=== PATIENT | male | born 1955 | race Caucasian/White ===

== ENCOUNTER 2017-05-13 14:52 | Outpatient (CLI) | payer OTHER ==
[2017-05-13 16:48] LABS: Hemoglobin 14.9 g/dL (14.0-18.0); Mean Corpuscular HGB CONC 33.5 g/dL (32.0-36.0); Mean Corpuscular Hemoglobin 33.5 pg (27.0-31.0); Mean Corpuscular Volume 99.9 fl (80.0-94.0); Mean Platelet Volume 8.6 fL (7.4-10.4); Platelet Count 161 thou/uL (130-400); Red Blood Cell (RBC) Count 4.45 mill/uL (4.70-6.10)
[2017-05-13 17:09] LABS: Anion Gap 10 mmol/L (10-20); BUN (Urea Nitrogen) 14 mg/dL (8.4-25.7); Calc. Creatinine Clearance 0 mL/min (70-130); Calcium 9.6 mg/dL (7.8-10.44); Carbon Dioxide 25 mmol/L (23-31); Chloride 99 mmol/L (98-107); Estimated GFR-MDRD 59; Glucose 89 mg/dL (80-115); Potassium 4.3 mmol/L (3.5-5.1); Sodium 130 mmol/L (136-145)
--- NOTE | 2017-05-29 22:33 | EKG ---
Test Reason : Blood Pressure : / mmHG Vent. Rate : 069 BPM Atrial Rate : 069 BPM P-R Int : 114 ms QRS Dur : 092 ms QT Int : 384 ms P-R-T Axes : 033 073 060 degrees QTc Int : 411 ms Normal sinus rhythm with sinus arrhythmia Possible Anterior infarct (cited on or before 25-APR-2006) Abnormal ECG When compared with ECG of 25-APR-2006 06:45, Sinus rhythm has replaced Junctional rhythm Questionable change in QRS duration Borderline criteria for Inferior infarct are no longer Present Questionable change in initial forces of Lateral leads Confirmed by Dewayne CAMP ([id number]) on 05/29/2017 10:33:13 PM Referred By: ASTON Confirmed By:Dewayne CAMP
== END 2017-05-13 14:53 | disposition home or self-care (01) ==
LOC: LABBT 14:52
PROVIDERS: ATTEND Thoracic Surgery (Cardiothoracic Vascular Surgery)
DX: Z01.818 Encounter for other preprocedural examination (principal); I65.29 Occlusion and stenosis of unspecified carotid artery
CPT/HCPCS: 80048; 85027; 93005; 93010

== ENCOUNTER 2017-05-13 15:00 | Inpatient (IN) | payer OTHER ==
[2017-05-13 15:22] VITALS: BMI 11.2
[2017-05-14] MEDS ORDERED: Nitroglycerin 50 MG/250 ML BOT 250 ML ONE (06:12)
[2017-05-14] MEDS ORDERED: Phenylephrine HCL 10 MG/ML VIAL ONE (06:12)
[2017-05-14] MEDS ORDERED: Nitroglycerin 2% Ointment 1 INCH/1 GM Packet ONE (06:12)
[2017-05-14] MEDS ORDERED: CEFAZOLIN/Water 2 GM/20 ML SYRINGE ONE (06:13)
[2017-05-14] MEDS ORDERED: Heparin 5,000 UNITS/ML VIAL ONE (06:24)
[2017-05-14] MEDS ORDERED: Protamine Sulfate 50 MG/5 ML VIAL ONE (06:24)
[2017-05-14] MEDS ORDERED: Fentanyl 250 MCG/5 ML VIAL ONE (06:43)
[2017-05-14] MEDS ORDERED: Levofloxacin 500 mg/D5W 100 ml Premix Bag ONE (06:44)
[2017-05-14] MEDS ORDERED: Clindamycin/D5W 900 mg/50 ml Premix Bag ONE (06:44)
[2017-05-14] MEDS ORDERED: Midazolam HCl 2 mg/2 ml Vial ONE (06:45)
[2017-05-14] MEDS ORDERED: Famotidine/PF 20 mg/2ml Vial ONE (06:53)
[2017-05-14] MEDS ORDERED: HYDROmorphone 2 MG/ML VIAL SLOW IVP PRN (08:01)
[2017-05-14] MEDS ORDERED: Morphine Sulfate 2 MG/ML SYRINGE SLOW IVP PRN (08:01)
[2017-05-14] MEDS ORDERED: Promethazine HCl 25 MG/ML VIAL IM PRN ×2 (08:01→11:12)
[2017-05-14] MEDS ORDERED: Ondansetron HCl/PF 4 MG/2 ML Vial IVP PRN ×2 (08:01→11:12)
[2017-05-14] MEDS ORDERED: Promethazine HCl 25 MG/ML VIAL SLOW IVP PRN (08:01)
[2017-05-14] MEDS ORDERED: Meperidine HCl/PF 25 MG/ML VIAL SLOW IVP PRN (08:01)
[2017-05-14] MEDS ORDERED: Fentanyl 100 MCG/2 ML VIAL ONE (09:49)
[2017-05-14] MEDS ORDERED: Fentanyl 100 MCG/2 ML VIAL SLOW IVP PRN ×2 (11:12)
[2017-05-14] MEDS ORDERED: HYDROcodone/Acetaminophen 5/325 mg Tablet PO PRN ×2 (11:12)
[2017-05-14] MEDS ORDERED: hydrALAZINE 20 MG/ML VIAL SLOW IVP PRN (11:12)
[2017-05-14] MEDS ORDERED: Nitroglycerin 50 MG/250 ML BOT 250 ML IVPB PRN (11:12)
[2017-05-14] MEDS ORDERED: Phenylephrine 10 MG/NS 250 ML 250 ML IVPB PRN (11:12)
[2017-05-14] MEDS ORDERED: Fluticasone Propionate Nasal Spray 16 gm Bottle NASAL SCH (12:00)
[2017-05-14] MEDS ORDERED: PROVENTIL INHALER 6.7 G (200 INHALATIONS) INH PRN (12:15)
[2017-05-14] MEDS ORDERED: Aspirin 81 mg Enteric Coated Tablet PO SCH (12:15)
[2017-05-14] MEDS ORDERED: Lisinopril 20 MG TAB PO SCH (12:15)
[2017-05-14] MEDS ORDERED: Amlodipine 5 MG TAB PO SCH (12:15)
[2017-05-14] MEDS ORDERED: Carvedilol 6.25 MG TAB PO SCH ×2 (12:15→21:00)
[2017-05-14] MEDS: Clindamycin/D5W 900 MG in Premix Bag 1 BAG IVPB SCH ×3 (12:16→23:46)
[2017-05-14] MEDS: Acetaminophen 325 MG TAB PO PRN ×2 (13:58→19:54)
[2017-05-14] MEDS ORDERED: Propofol 200 MG/20 ML VIAL ONE (14:44)
[2017-05-14] MEDS ORDERED: PHENYLEPHRINE-NS 100 MCG/ML 10 ML SYRINGE ONE (14:44)
[2017-05-14] MEDS ORDERED: Heparin 10,000 UNITS/ 10 ML VIAL ONE (14:44)
[2017-05-14] MEDS ORDERED: Labetalol 100 MG/20 ML MDV ONE (14:44)
[2017-05-14] MEDS ORDERED: ePHEDrine/0.9% NaCl/PF SYRINGE 50 mg/10 ml ONE (14:44)
[2017-05-14] MEDS ORDERED: Ondansetron HCl/PF 4 MG/2 ML Vial ONE (14:44)
[2017-05-14] MEDS ORDERED: Nitroglycerin 50 MG/250 ML BOT ONE (14:44)
[2017-05-14] MEDS ORDERED: Lidocaine 1% PF 5 ML VIAL ONE (14:44)
[2017-05-14] MEDS ORDERED: Glycopyrrolate 0.2 MG/ML 5 ML SYRINGE ONE (14:44)
[2017-05-14 19:58] VITALS: BP 112/58
[2017-05-14] MEDS ORDERED: Simvastatin 40 MG TAB PO SCH (21:00)
[2017-05-15] MEDS: Sodium Chloride 0.9% 1,000 ML IV SCH ×2 (01:41→08:25)
--- NOTE | 2017-05-15 05:59 | DIS ---
DATE OF ADMISSION: 05/14/2017 DATE OF DISCHARGE: 05/15/2017 DIAGNOSES: Asymptomatic left carotid stenosis. PROCEDURES: Left carotid endarterectomy with patch angioplasty. DESCRIPTION OF HOSPITAL STAY: Mr. Madrigal was admitted for an elective carotid endarterectomy. He qureshi s done well. He is being discharged home postoperatively in good condition to follow up with me in 2 weeks.
[2017-05-15] MEDS: Clindamycin/D5W 900 MG in Premix Bag 1 BAG IVPB SCH (06:16)
[2017-05-15 07:16] VITALS: TEMP 98.2
[2017-05-15] MEDS ORDERED: Doxycycline Monohydrate 25 MG/5 ML PO SCH (09:00)
[2017-05-15] MEDS ORDERED: Lisinopril 20 MG TAB PO SCH (09:00)
[2017-05-15] MEDS ORDERED: Amlodipine 5 MG TAB PO SCH (09:00)
[2017-05-15] MEDS ORDERED: Fluticasone Propionate Nasal Spray 16 gm Bottle NASAL SCH (09:00)
[2017-05-15] MEDS ORDERED: Aspirin 81 mg Enteric Coated Tablet PO SCH (09:00)
[2017-05-15] MEDS: Acetaminophen 325 MG TAB PO PRN (09:05)
== END 2017-05-15 09:17 | disposition home or self-care (01) | DRG 39 ==
LOC: SURG A 05-14 05:35 → CCU 05-14 11:01
PROVIDERS: ADMIT Thoracic Surgery (Cardiothoracic Vascular Surgery); ATTEND Thoracic Surgery (Cardiothoracic Vascular Surgery)
PROC: 03CJ0ZZ Extirpation of Matter from Left Common Carotid Artery, Open Approach (ICD-10-PCS; principal; 2017-05-14)
PROC: 03UJ0JZ Supplement Left Common Carotid Artery with Synthetic Substitute, Open Approach (ICD-10-PCS; 2017-05-14)
DX: I65.8 Occlusion and stenosis of other precerebral arteries (principal); F17.210 Nicotine dependence, cigarettes, uncomplicated; I65.22 Occlusion and stenosis of left carotid artery; Z79.82 Long term (current) use of aspirin; Z88.1 Allergy status to other antibiotic agents
CPT/HCPCS: 80048; 85027; 93005; 93010; 94640; J0131; J1642; J1644; J1956; J2001; J2250; J2370; J2405; J2704; J2720; J3010; J3490; J7620; S0028

== ENCOUNTER 2020-05-10 10:05 | Outpatient (CLI) | payer MEDICARE, OTHER | END 2020-05-10 10:06 | disposition home or self-care (01) | LOC: BICMRI 10:05 | PROVIDERS: ATTEND Nurse Practitioner Family | DX: M47.22 Other spondylosis with radiculopathy, cervical region (principal) | CPT/HCPCS: 72141 ==

== ENCOUNTER 2020-09-23 10:44 | Outpatient (CLI) | payer MEDICARE, OTHER ==
[2020-09-23 12:06] LABS: Anion Gap 14 mmol/L (10-20); BUN (Urea Nitrogen) 26 mg/dL (8.4-25.7); Calc. Creatinine Clearance 0 mL/min (70-130); Calcium 9.6 mg/dL (7.8-10.44); Carbon Dioxide 23 mmol/L (23-31); Chloride 104 mmol/L (98-107); Glucose 90 mg/dL (80-115); Potassium 5.1 mmol/L (3.5-5.1); Sodium 136 mmol/L (136-145)
[2020-09-23 12:22] LABS: Hemoglobin 14.1 g/dL (13.5-17.5); Mean Corpuscular HGB CONC 33.5 g/dL (32.0-36.0); Mean Corpuscular Volume 95.5 fl (81.2-95.1); Mean Platelet Volume 11.9 fl (7.4-10.4); Platelet Count 144 10x3/uL (150-450); RBC Distribution Width 12.6 % (11.5-14.5); Red Blood Cell (RBC) Count 4.41 10x6/uL (4.32-5.72); White Blood Cell (WBC) Count 7.1 10x3/uL (3.5-10.5)
[2020-09-23 18:31] LABS: SARS-CoV-2 PCR by NAA Not Detected (NotDetected)
== END 2020-09-23 10:45 | disposition home or self-care (01) ==
LOC: LABBT 10:44
PROVIDERS: ATTEND Neurological Surgery
DX: Z01.818 Encounter for other preprocedural examination (principal); M54.12 Radiculopathy, cervical region; Z20.822 Contact with and (suspected) exposure to COVID-19
CPT/HCPCS: 80048; 85027; 93005; U0003; U0005; 93010

== ENCOUNTER 2020-09-28 07:02 | Day surgery (SDC) | payer MEDICARE, OTHER ==
[2020-09-27 10:56] VITALS: BMI 26.1
== END 2020-09-28 08:15 | disposition home or self-care (01) ==
LOC: SDC 07:02
PROVIDERS: ATTEND Neurological Surgery
DX: M54.12 Radiculopathy, cervical region (principal); M25.78 Osteophyte, vertebrae; M48.02 Spinal stenosis, cervical region; J45.909 Unspecified asthma, uncomplicated; I10 Essential (primary) hypertension; Z53.9 Procedure and treatment not carried out, unspecified reason; Z79.02 Long term (current) use of antithrombotics/antiplatelets; Z79.82 Long term (current) use of aspirin; Z79.899 Other long term (current) drug therapy; Z88.0 Allergy status to penicillin; Z88.8 Allergy status to other drugs, medicaments and biological substances; Z91.018 Allergy to other foods

== ENCOUNTER 2021-09-10 16:23 | Inpatient (IN) | payer MEDICARE, OTHER ==
[~2021-09-10 16:23] MED LIST: Iopamidol-370 76% 500 ML 1 ML ONE
[2021-09-10] MEDS ORDERED: HUMAN PROTHROMBIN COMPLX IV SCH (17:00)
[2021-09-10] MEDS ORDERED: ADMIXTURE FEE IV SCH (17:00)
[2021-09-10 17:33] LABS: SARS-CoV-2 NAA Rapid Test Not Detected (NotDetected)
[2021-09-10 17:46] LABS: #Eosinphils 0.1 thou/uL (0.0-0.7); #Lymphocytes 2.8 thou/uL (1.20-3.40); #Monocytes 1.8 thou/uL (0.11-0.59); #Neutrophils 11.8 thou/uL (1.40-6.50); %Basophils 0.2 % (0.0-1.0); %Eosinophils 0.7 % (0.0-10.0); %Lymphocytes 16.8 % (21.0-51.0); %Monocytes 10.8 % (0.0-10.0); %Neutrophils 71.5 % (42.0-75.0); Hemoglobin 13.1 g/dL (14.0-18.0); Mean Corpuscular HGB CONC 33.1 g/dL (32.0-36.0); Mean Corpuscular Hemoglobin 32.3 pg (27.0-31.0); Mean Corpuscular Volume 97.8 fL (78.0-98.0); Mean Platelet Volume 8.7 fL (7.4-10.4); Platelet Count 241 thou/uL (130-400); RBC Distribution Width 12.6 % (11.5-14.5); Red Blood Cell (RBC) Count 4.06 mill/uL (4.70-6.10); White Blood Cell (WBC) Count 16.4 thou/uL (4.8-10.8)
[2021-09-10 17:54] LABS: INR-International Normal Ratio 1.1; Prothrombin Time 14.1 sec (12.0-14.7)
[2021-09-10 17:56] LABS: PTT 27.8 sec (22.9-36.1)
[2021-09-10 18:20] LABS: ALT (SGPT) 29 U/L (8-55); AST (SGOT) 22 U/L (5-34); Albumin 3.7 g/dL (3.4-4.8); Alkaline Phosphatase 131 U/L (40-110); Anion Gap 19 mmol/L (10-20); BUN (Urea Nitrogen) 23 mg/dL (8.4-25.7); Calc. Creatinine Clearance 0 mL/min (70-130); Calcium 9.9 mg/dL (7.8-10.44); Carbon Dioxide 20 mmol/L (23-31); Chloride 99 mmol/L (98-107); Estimated GFR 58; Globulin 3.5 g/dL (2.4-3.5); Glucose 94 mg/dL (80-115); Potassium 4.4 mmol/L (3.5-5.1); Protein, Total 7.2 g/dL (5.8-8.1); Sodium 134 mmol/L (136-145)
[2021-09-10] MEDS ORDERED: Ondansetron PF 4 MG/2 ML Vial IVP PRN (19:26)
[2021-09-10] MEDS ORDERED: diphenhydrAMINE 50 MG/ML VIAL IVP PRN (19:26)
[2021-09-10] MEDS ORDERED: Promethazine HCl 25 MG/ML VIAL IM PRN (19:26)
[2021-09-10] MEDS ORDERED: Docusate 100 MG CAP PO PRN (19:26)
[2021-09-10] MEDS ORDERED: hydrALAZINE 20 MG/ML VIAL SLOW IVP PRN (19:26)
[2021-09-10] MEDS ORDERED: Phytonadione 10 MG in Sodium Chloride 0.9% 50 ML IVPB SCH (19:30)
[2021-09-10] MEDS ORDERED: Acetaminophen/Codeine 30-300mg Tablet PO PRN (19:44)
[2021-09-10] MEDS ORDERED: Lorazepam 2 MG/ML VIAL IM PRN (19:45)
[2021-09-10] MEDS ORDERED: Lorazepam 1 MG TAB PO PRN (19:45)
[2021-09-10] MEDS ORDERED: Electrolyte Replacement Protocol 1 EACH FS SCH (19:45)
[2021-09-10] MEDS ORDERED: Ondansetron ODT 4 MG TAB PO PRN (19:45)
[2021-09-10 20:29] LABS: Bilirubin, Direct 0.6 mg/dL (0.1-0.3); Magnesium 1.9 mg/dL (1.6-2.6); Phosphorus 3.4 mg/dL (2.3-4.7)
[2021-09-10] MEDS: Lorazepam 1 MG TAB PO SCH (20:51)
[2021-09-10] MEDS: Thiamine HCl 200 MG/2 ML VIAL SLOW IVP SCH (20:52)
[2021-09-10] MEDS: niCARdipine 25 MG in Sodium Chloride 0.9% 250 ML 250 ML IVPB SCH (20:52)
[2021-09-10] MEDS: Sodium Chloride 0.9% 1,000 ML IV SCH (20:52)
[2021-09-10] MEDS ORDERED: Magnesium 2 GM/50 ML(in water) 2 GM in Premix Bag 1 BAG IVPB SCH (21:30)
[2021-09-11] MEDS: niCARdipine 25 MG in Sodium Chloride 0.9% 250 ML 250 ML IVPB SCH ×4 (00:37→21:35)
[2021-09-11] MEDS: Lorazepam 1 MG TAB PO SCH ×4 (02:57→20:11)
[2021-09-11] MEDS: Labetalol HCl 100 MG/20 ML VIAL SLOW IVP PRN ×5 (04:53→23:08)
[2021-09-11 05:41] LABS: #Lymphocytes 1.1 thou/uL (1.20-3.40); #Monocytes 1.8 thou/uL (0.11-0.59); #Neutrophils 12.8 thou/uL (1.40-6.50); %Basophils 0.2 % (0.0-1.0); %Eosinophils 0.3 % (0.0-10.0); %Monocytes 11.6 % (0.0-10.0); %Neutrophils 80.9 % (42.0-75.0); Hemoglobin 12.2 g/dL (14.0-18.0); Mean Corpuscular HGB CONC 33.7 g/dL (32.0-36.0); Mean Corpuscular Hemoglobin 32.5 pg (27.0-31.0); Mean Corpuscular Volume 96.5 fL (78.0-98.0); Platelet Count 232 thou/uL (130-400); RBC Distribution Width 12.5 % (11.5-14.5); Red Blood Cell (RBC) Count 3.74 mill/uL (4.70-6.10); White Blood Cell (WBC) Count 15.8 thou/uL (4.8-10.8)
[2021-09-11 05:59] LABS: Anion Gap 17 mmol/L (10-20); BUN (Urea Nitrogen) 22 mg/dL (8.4-25.7); Calc. Creatinine Clearance 51 mL/min (70-130); Calcium 9.2 mg/dL (7.8-10.44); Carbon Dioxide 19 mmol/L (23-31); Chloride 103 mmol/L (98-107); Estimated GFR 61; Glucose 143 mg/dL (80-115); Potassium 3.8 mmol/L (3.5-5.1); Sodium 135 mmol/L (136-145)
[2021-09-11] MEDS: Folic Acid 1 MG TAB PO SCH (08:41)
[2021-09-11] MEDS: Amlodipine 10 MG TAB PO SCH (08:41)
[2021-09-11] MEDS: Sodium Chloride 0.9% 1,000 ML IV SCH (08:42)
[2021-09-11] MEDS: Multivit, Therapeutic 1 TAB PO SCH (08:42)
[2021-09-11] MEDS: Pantoprazole 40 MG VIAL IVP SCH (08:42)
[2021-09-11 11:18] LABS: Syphilis Antibody Nonreactive (Nonreactive)
[2021-09-11] MEDS: Morphine 2 MG/ML VIAL SLOW IVP PRN (14:38)
[2021-09-11] MEDS ORDERED: Lorazepam 1 MG TAB PO PRN (19:46)
[2021-09-11] MEDS: Thiamine HCl 200 MG/2 ML VIAL SLOW IVP SCH (20:10)
[2021-09-12] MEDS ORDERED: Furosemide 20 MG/2 ML VIAL SLOW IVP SCH (01:00)
[2021-09-12 01:55] LABS: Cardiac Risk 3.7 (Less than 4.5)
[2021-09-12 01:56] LABS: #Lymphocytes 1.9 thou/uL (1.20-3.40); #Monocytes 1.5 thou/uL (0.11-0.59); #Neutrophils 12.2 thou/uL (1.40-6.50); %Eosinophils 0.1 % (0.0-10.0); %Lymphocytes 12.2 % (21.0-51.0); %Monocytes 9.7 % (0.0-10.0); %Neutrophils 77.9 % (42.0-75.0); Hemoglobin 11.7 g/dL (14.0-18.0); Mean Corpuscular HGB CONC 33.2 g/dL (32.0-36.0); Mean Corpuscular Hemoglobin 32.5 pg (27.0-31.0); Mean Corpuscular Volume 97.9 fL (78.0-98.0); Platelet Count 237 thou/uL (130-400); RBC Distribution Width 12.7 % (11.5-14.5); Red Blood Cell (RBC) Count 3.61 mill/uL (4.70-6.10); White Blood Cell (WBC) Count 15.7 thou/uL (4.8-10.8)
[2021-09-12 02:17] LABS: Anion Gap 15 mmol/L (10-20); BUN (Urea Nitrogen) 21 mg/dL (8.4-25.7); Calc. Creatinine Clearance 56 mL/min (70-130); Calcium 9.2 mg/dL (7.8-10.44); Carbon Dioxide 19 mmol/L (23-31); Chloride 106 mmol/L (98-107); Estimated GFR 67; Glucose 127 mg/dL (80-115); Magnesium 1.9 mg/dL (1.6-2.6); Potassium 3.8 mmol/L (3.5-5.1); Sodium 136 mmol/L (136-145)
[2021-09-12] MEDS ORDERED: Magnesium 2 GM/50 ML(in water) 2 GM in Premix Bag 1 BAG IVPB SCH (02:45)
[2021-09-12] MEDS: Lorazepam 1 MG TAB PO SCH ×3 (02:58→15:20)
[2021-09-12] MEDS: Multivit, Therapeutic 1 TAB PO SCH (10:58)
[2021-09-12] MEDS: Amlodipine 10 MG TAB PO SCH (10:58)
[2021-09-12] MEDS: Folic Acid 1 MG TAB PO SCH (10:58)
[2021-09-12] MEDS: Pantoprazole 40 MG VIAL IVP SCH (10:59)
[2021-09-12] MEDS: Labetalol HCl 100 MG/20 ML VIAL SLOW IVP PRN (13:21)
[2021-09-12] MEDS ORDERED: Lorazepam 1 MG TAB PO PRN (19:46)
[2021-09-12] MEDS: Lorazepam 0.5 MG TAB PO SCH (20:21)
[2021-09-12] MEDS: Thiamine HCl 200 MG/2 ML VIAL SLOW IVP SCH (21:43)
[2021-09-13] MEDS: Lorazepam 0.5 MG TAB PO SCH ×3 (02:35→16:27)
[2021-09-13 07:00] LABS: #Lymphocytes 2.2 thou/uL (1.20-3.40); #Monocytes 2.3 thou/uL (0.11-0.59); #Neutrophils 12.7 thou/uL (1.40-6.50); %Basophils 0.1 % (0.0-1.0); %Eosinophils 0.2 % (0.0-10.0); %Lymphocytes 12.6 % (21.0-51.0); %Monocytes 13.4 % (0.0-10.0); %Neutrophils 73.8 % (42.0-75.0); Hemoglobin 12.2 g/dL (14.0-18.0); Mean Corpuscular HGB CONC 32.2 g/dL (32.0-36.0); Mean Corpuscular Hemoglobin 31.3 pg (27.0-31.0); Mean Corpuscular Volume 97.2 fL (78.0-98.0); Mean Platelet Volume 8.4 fL (7.4-10.4); Platelet Count 251 thou/uL (130-400); RBC Distribution Width 12.7 % (11.5-14.5); Red Blood Cell (RBC) Count 3.91 mill/uL (4.70-6.10); White Blood Cell (WBC) Count 17.3 thou/uL (4.8-10.8)
[2021-09-13 07:19] LABS: Anion Gap 17 mmol/L (10-20); BUN (Urea Nitrogen) 22 mg/dL (8.4-25.7); Calc. Creatinine Clearance 56 mL/min (70-130); Calcium 9.5 mg/dL (7.8-10.44); Carbon Dioxide 22 mmol/L (23-31); Chloride 105 mmol/L (98-107); Estimated GFR 67; Glucose 113 mg/dL (80-115); Potassium 4.2 mmol/L (3.5-5.1); Sodium 140 mmol/L (136-145)
[2021-09-13] MEDS: Amlodipine 10 MG TAB PO SCH (11:24)
[2021-09-13] MEDS: Multivit, Therapeutic 1 TAB PO SCH (11:24)
[2021-09-13] MEDS: Folic Acid 1 MG TAB PO SCH (11:24)
[2021-09-13] MEDS: Pantoprazole 40 MG VIAL IVP SCH (11:25)
[2021-09-13] MEDS: Thiamine 100 MG TAB PO SCH (20:45)
[2021-09-14] MEDS: Folic Acid 1 MG TAB PO SCH (09:53)
[2021-09-14] MEDS: Amlodipine 10 MG TAB PO SCH (09:53)
[2021-09-14] MEDS: Multivit, Therapeutic 1 TAB PO SCH (09:56)
[2021-09-14] MEDS: Pantoprazole 40 MG VIAL IVP SCH (09:56)
[2021-09-14] MEDS: Thiamine 100 MG TAB PO SCH (20:53)
[2021-09-15 04:13] LABS: Anion Gap 16 mmol/L (10-20); BUN (Urea Nitrogen) 32 mg/dL (8.4-25.7); Calc. Creatinine Clearance 50 mL/min (70-130); Calcium 10.4 mg/dL (7.8-10.44); Carbon Dioxide 23 mmol/L (23-31); Chloride 109 mmol/L (98-107); Estimated GFR 60; Glucose 148 mg/dL (80-115); Potassium 4.4 mmol/L (3.5-5.1); Sodium 144 mmol/L (136-145)
[2021-09-15] MEDS: Lorazepam 0.5 MG TAB PO PRN ×3 (04:45→20:58)
[2021-09-15] MEDS: Folic Acid 1 MG TAB PO SCH (08:02)
[2021-09-15] MEDS: Multivit, Therapeutic 1 TAB PO SCH (08:02)
[2021-09-15] MEDS: Amlodipine 10 MG TAB PO SCH (08:02)
[2021-09-15] MEDS: Acetaminophen 325 MG TAB PER TUBE PRN (08:03)
[2021-09-15] MEDS: Lansoprazole 3 MG/ML ORAL SUSPENSION PER TUBE SCH (10:16)
[2021-09-15] MEDS: Labetalol HCl 100 MG/20 ML VIAL SLOW IVP PRN ×2 (13:53→20:58)
[2021-09-15] MEDS: Mometasone 200 MCG/Formoterol 5 MCG 120 PUFF INHALER INH SCH (18:22)
[2021-09-15] MEDS: Thiamine 100 MG TAB PO SCH (20:58)
[2021-09-15] MEDS: Tamsulosin HCl 0.4 MG CAP PO SCH (20:58)
[2021-09-16] MEDS: Acetaminophen 325 MG TAB PER TUBE PRN (04:10)
[2021-09-16] MEDS: Folic Acid 1 MG TAB PO SCH (08:43)
[2021-09-16] MEDS: Amlodipine 10 MG TAB PO SCH (08:43)
[2021-09-16] MEDS: Amiodarone 200 MG TAB PO SCH (08:43)
[2021-09-16] MEDS: Lansoprazole 3 MG/ML ORAL SUSPENSION PER TUBE SCH (08:43)
[2021-09-16] MEDS: Multivit, Therapeutic 1 TAB PO SCH (08:44)
[2021-09-16] MEDS: Mometasone 200 MCG/Formoterol 5 MCG 120 PUFF INHALER INH SCH ×2 (10:08→18:45)
[2021-09-16] MEDS ORDERED: Bisacodyl 10 MG SUPP PR PRN ×2 (11:34→13:15)
[2021-09-16] MEDS: Lorazepam 0.5 MG TAB PO PRN ×2 (12:06→22:38)
[2021-09-16] MEDS: Labetalol HCl 100 MG/20 ML VIAL SLOW IVP PRN (12:09)
[2021-09-16] MEDS: NEOMYCIN FS SCH ×2 (13:15→13:16)
[2021-09-16] MEDS: [UNRECOGNIZED DRUG - OTHER] FS SCH ×2 (13:15→13:16)
[2021-09-16] MEDS: HYDROCORTISONE FS SCH ×2 (13:15→13:16)
[2021-09-16] MEDS: Thiamine 100 MG TAB PO SCH (20:36)
[2021-09-16] MEDS: Tamsulosin HCl 0.4 MG CAP PO SCH (20:36)
[2021-09-17] MEDS: Lorazepam 0.5 MG TAB PO PRN ×2 (02:54→20:34)
[2021-09-17 04:18] LABS: #Eosinphils 0.1 thou/uL (0.0-0.7); #Lymphocytes 2.3 thou/uL (1.20-3.40); #Monocytes 1.9 thou/uL (0.11-0.59); #Neutrophils 13.1 thou/uL (1.40-6.50); %Eosinophils 0.5 % (0.0-10.0); %Lymphocytes 13.4 % (21.0-51.0); %Monocytes 10.6 % (0.0-10.0); %Neutrophils 75.5 % (42.0-75.0); Hemoglobin 12.7 g/dL (14.0-18.0); Mean Corpuscular HGB CONC 31.9 g/dL (32.0-36.0); Mean Platelet Volume 9.5 fL (7.4-10.4); Platelet Count 213 thou/uL (130-400); RBC Distribution Width 12.9 % (11.5-14.5); Red Blood Cell (RBC) Count 3.98 mill/uL (4.70-6.10); White Blood Cell (WBC) Count 17.4 thou/uL (4.8-10.8)
[2021-09-17 04:31] LABS: Anion Gap 18 mmol/L (10-20); BUN (Urea Nitrogen) 38 mg/dL (8.4-25.7); Calc. Creatinine Clearance 46 mL/min (70-130); Calcium 10.6 mg/dL (7.8-10.44); Carbon Dioxide 24 mmol/L (23-31); Chloride 110 mmol/L (98-107); Estimated GFR 54; Glucose 176 mg/dL (80-115); Sodium 148 mmol/L (136-145)
[2021-09-17] MEDS ORDERED: Acetaminophen W/ Codeine 5 ML UDCUP PO PRN (05:23)
[2021-09-17] MEDS ORDERED: Acetaminophen W/ Codeine 5 ML UDCUP PER TUBE PRN (05:30)
[2021-09-17] MEDS: Acetaminophen 650 MG/20.3 ML UDCUP PER TUBE PRN ×3 (05:41→22:55)
[2021-09-17] MEDS: Mometasone 200 MCG/Formoterol 5 MCG 120 PUFF INHALER INH SCH ×2 (06:42→18:32)
[2021-09-17] MEDS ORDERED: Norepinephrine 8 MG/0.9% NS 250 ML IVPB PRN (07:23)
[2021-09-17] MEDS: Folic Acid 1 MG TAB PO SCH (08:02)
[2021-09-17] MEDS: Multivit, Therapeutic 1 TAB PO SCH (08:02)
[2021-09-17] MEDS: Polyethylene Glycol 3350 17 GM Packet PER TUBE SCH (08:02)
[2021-09-17] MEDS: Lansoprazole 3 MG/ML ORAL SUSPENSION PER TUBE SCH (08:02)
[2021-09-17] MEDS: Amiodarone 200 MG TAB PO SCH (08:03)
[2021-09-17] MEDS: Amlodipine 10 MG TAB PO SCH (08:03)
[2021-09-17 16:12] LABS: Bacteria/HPF None Seen HPF (None Seen); Bilirubin Negative (Negative); Blood, Urine Trace (Negative); Clarity Clear (Clear); Glucose, Urine (Dipstick) Normal (Negative); Ketone, Urine Negative (Negative); Leukocyte Negative Leu/uL (Negative); Nitrite Negative (Negative); Protein, Urine (Dipstick) 70 mg/dL (Neg-Trace); RBC/HPF 0-3 HPF (0-3); Specific Gravity, Urine 1.019 (1.002-1.036); Squamous Epithelial None Seen HPF (0-3); Urobilinogen Greater than 12 mg/dL (Less than 2); WBC/HPF 0-3 HPF (0-3); pH, Urine 6.5 (5.0-9.0)
[2021-09-17 16:14] LABS: Urine Culture Reflex No No
[2021-09-17 18:27] LABS: Creatinine, Urine 76.46 mg/dL (63-166)
[2021-09-17 18:30] LABS: ALT (SGPT) 87 U/L (8-55); AST (SGOT) 49 U/L (5-34); Albumin 3.1 g/dL (3.4-4.8); Alkaline Phosphatase 176 U/L (40-110); Bilirubin, Direct 0.6 mg/dL (0.1-0.3); Bilirubin, Total 1.1 mg/dL (0.2-1.2); Protein, Total 6.7 g/dL (5.8-8.1)
[2021-09-17] MEDS: Thiamine 100 MG TAB PO SCH (20:34)
[2021-09-17] MEDS: Sodium Chloride 0.45% 1,000 ML IV SCH (20:34)
[2021-09-17] MEDS: Tamsulosin HCl 0.4 MG CAP PO SCH (20:34)
[2021-09-18] MEDS: Lorazepam 0.5 MG TAB PO PRN ×3 (01:33→22:30)
[2021-09-18] MEDS: Morphine 2 MG/ML VIAL SLOW IVP PRN ×2 (02:48→20:42)
[2021-09-18] MEDS: Acetaminophen 650 MG/20.3 ML UDCUP PER TUBE PRN ×3 (02:50→15:41)
[2021-09-18 04:02] LABS: #Basophils 0.1 thou/uL (0.0-0.2); #Eosinphils 0.1 thou/uL (0.0-0.7); #Lymphocytes 1.7 thou/uL (1.20-3.40); #Monocytes 1.2 thou/uL (0.11-0.59); #Neutrophils 14.1 thou/uL (1.40-6.50); %Basophils 0.3 % (0.0-1.0); %Eosinophils 0.6 % (0.0-10.0); %Lymphocytes 9.7 % (21.0-51.0); %Monocytes 7.2 % (0.0-10.0); %Neutrophils 82.2 % (42.0-75.0); Hemoglobin 10.4 g/dL (14.0-18.0); Mean Corpuscular HGB CONC 32.2 g/dL (32.0-36.0); Mean Corpuscular Hemoglobin 31.7 pg (27.0-31.0); Mean Corpuscular Volume 98.5 fL (78.0-98.0); Mean Platelet Volume 9.3 fL (7.4-10.4); Platelet Count 186 thou/uL (130-400); RBC Distribution Width 12.9 % (11.5-14.5); Red Blood Cell (RBC) Count 3.29 mill/uL (4.70-6.10); White Blood Cell (WBC) Count 17.1 thou/uL (4.8-10.8)
[2021-09-18 04:31] LABS: Anion Gap 13 mmol/L (10-20); BUN (Urea Nitrogen) 39 mg/dL (8.4-25.7); Calc. Creatinine Clearance 37 mL/min (70-130); Carbon Dioxide 27 mmol/L (23-31); Chloride 111 mmol/L (98-107); Estimated GFR 44; Glucose 179 mg/dL (80-115); Potassium 3.9 mmol/L (3.5-5.1); Sodium 147 mmol/L (136-145)
[2021-09-18] MEDS: Sodium Chloride 0.45% 1,000 ML IV SCH (04:45)
[2021-09-18] MEDS: Mometasone 200 MCG/Formoterol 5 MCG 120 PUFF INHALER INH SCH ×2 (07:40→18:48)
[2021-09-18] MEDS ORDERED: Sodium Chloride 0.45% 1,000 ML IV SCH (08:35)
[2021-09-18] MEDS: Polyethylene Glycol 3350 17 GM Packet PER TUBE SCH (09:17)
[2021-09-18] MEDS: Folic Acid 1 MG TAB PO SCH (09:17)
[2021-09-18] MEDS: Lansoprazole 3 MG/ML ORAL SUSPENSION PER TUBE SCH (09:17)
[2021-09-18] MEDS: Amlodipine 10 MG TAB PO SCH (09:17)
[2021-09-18] MEDS: Amiodarone 200 MG TAB PO SCH (09:18)
[2021-09-18] MEDS: Multivit, Therapeutic 1 TAB PO SCH (09:18)
[2021-09-18] MEDS ORDERED: Meropenem 1 GM in Sodium Chloride 0.9% 100 ML IVPB SCH ×3 (14:00→22:00)
[2021-09-18] MEDS ORDERED: methylPREDNISolone Sod Succ/PF 125 MG/2 ML VIAL IVP SCH (14:15)
[2021-09-18 17:06] LABS: Albumin 2.6 g/dL (3.4-4.8); Anion Gap 13 mmol/L (10-20); BUN (Urea Nitrogen) 35 mg/dL (8.4-25.7); BUN/Creatinine Ratio 22.73; Calc. Creatinine Clearance 40 mL/min (70-130); Calcium 9.8 mg/dL (7.8-10.44); Carbon Dioxide 25 mmol/L (23-31); Chloride 111 mmol/L (98-107); Estimated GFR 49; Glucose 174 mg/dL (80-115); Phosphorus 2.5 mg/dL (2.3-4.7); Potassium 3.7 mmol/L (3.5-5.1); Sodium 145 mmol/L (136-145)
[2021-09-18] MEDS: Tamsulosin HCl 0.4 MG CAP PO SCH (20:44)
[2021-09-18] MEDS: Thiamine 100 MG TAB PO SCH (20:44)
[2021-09-19] MEDS ORDERED: Lorazepam (BATCHED) 2 MG/ML SYR SLOW IVP PRN (00:21)
[2021-09-19] MEDS: Morphine 4 MG/ML VIAL SLOW IVP PRN ×3 (00:43→11:27)
[2021-09-19 04:29] LABS: Albumin 2.8 g/dL (3.4-4.8); Anion Gap 15 mmol/L (10-20); BUN (Urea Nitrogen) 40 mg/dL (8.4-25.7); BUN/Creatinine Ratio 27.59; Calc. Creatinine Clearance 43 mL/min (70-130); Calcium 9.9 mg/dL (7.8-10.44); Carbon Dioxide 24 mmol/L (23-31); Chloride 110 mmol/L (98-107); Estimated GFR 53; Glucose 208 mg/dL (80-115); Phosphorus 3.9 mg/dL (2.3-4.7); Potassium 4.1 mmol/L (3.5-5.1); Sodium 145 mmol/L (136-145)
[2021-09-19] MEDS ORDERED: methylPREDNISolone Sod Succ/PF 125 MG/2 ML VIAL IVP SCH (09:00)
[2021-09-19] MEDS ORDERED: Haloperidol Lactate 5 MG/ML VIAL SLOW IVP SCH (12:00)
[2021-09-19] MEDS: Lorazepam 2 MG/ML VIAL SLOW IVP PRN (14:51)
[2021-09-19] MEDS ORDERED: Vancomycin 1.5 GRAM/300 ML BAG 1.5 GM in Premix Bag 1 BAG IVPB SCH ×2 (17:12→21:00)
[2021-09-19] MEDS ORDERED: Furosemide 40 MG/4 ML VIAL SLOW IVP SCH (17:30)
[2021-09-19] MEDS ORDERED: VANCOMYCIN 1.25 GM/250 ML BAG 1.25 GM in Premix Bag 1 BAG IVPB SCH (17:30)
[2021-09-19] MEDS: Cefepime 1 GM in Sodium Chloride 0.9% 100 ML IVPB SCH (18:20)
[2021-09-20] MEDS: Cefepime 1 GM in Sodium Chloride 0.9% 100 ML IVPB SCH ×2 (06:59→17:48)
[2021-09-20] MEDS: Furosemide 40 MG/4 ML VIAL SLOW IVP SCH (09:00)
[2021-09-20] MEDS: Morphine 4 MG/ML VIAL SLOW IVP PRN ×2 (09:04→16:02)
[2021-09-20] MEDS: Acetaminophen 650 MG Suppository PR PRN (09:39)
[2021-09-20] MEDS: Lorazepam 2 MG/ML VIAL SLOW IVP PRN (14:12)
[2021-09-20] MEDS ORDERED: Lorazepam 2 MG/ML VIAL SLOW IVP PRN (14:40)
[2021-09-20] MEDS: Vancomycin 1 GM in Premix Bag 1 BAG IVPB SCH (20:12)
[2021-09-21] MEDS: Cefepime 1 GM in Sodium Chloride 0.9% 100 ML IVPB SCH ×2 (04:57→18:08)
[2021-09-21] MEDS: Morphine 4 MG/ML VIAL SLOW IVP PRN ×3 (08:29→20:45)
[2021-09-21] MEDS: Furosemide 40 MG/4 ML VIAL SLOW IVP SCH ×2 (08:31→15:29)
[2021-09-21] MEDS: Acetaminophen 650 MG Suppository PR PRN ×2 (15:30→19:50)
[2021-09-21] MEDS ORDERED: NOREPINEPHRINE 8 MG/250 ML-D5W 250 ML IVPB SCH (17:00)
[2021-09-21] MEDS ORDERED: Sodium Chloride 0.9% 1,000 ML IV SCH (17:30)
[2021-09-21] MEDS: Vancomycin 1 GM in Premix Bag 1 BAG IVPB SCH (19:36)
[2021-09-21 20:08] LABS: Vancomycin, Trough 10.9 ug/mL
[2021-09-21] MEDS ORDERED: Rosuvastatin 20 MG TAB PO SCH (21:00)
[2021-09-22] MEDS: Acetaminophen 650 MG Suppository PR PRN ×2 (04:55→09:10)
[2021-09-22] MEDS: Cefepime 1 GM in Sodium Chloride 0.9% 100 ML IVPB SCH (04:56)
[2021-09-22] MEDS: Furosemide 40 MG/4 ML VIAL SLOW IVP SCH (04:56)
[2021-09-22] MEDS: Morphine 4 MG/ML VIAL SLOW IVP PRN ×5 (05:41→21:51)
[2021-09-22] MEDS ORDERED: Folic Acid 1 MG TAB PO SCH (09:00)
[2021-09-22 10:08] VITALS: BMI 19.0
[2021-09-22] MEDS ORDERED: Sodium Chloride 0.9% 500 ML IV SCH (11:15)
[2021-09-22] MEDS ORDERED: Midodrine HCl 5 MG TAB PO SCH ×2 (11:15→15:00)
[2021-09-22] MEDS ORDERED: VANCOMYCIN 1.25 GM/250 ML BAG 1.25 GM in Premix Bag 1 BAG IVPB SCH (14:00)
[2021-09-22] MEDS ORDERED: metroNIDAZOLE 500 MG in Premix Bag 1 BAG IVPB SCH (14:00)
[2021-09-22] MEDS: Lorazepam 2 MG/ML VIAL SLOW IVP PRN ×2 (15:32→20:51)
[2021-09-23] MEDS: Lorazepam 2 MG/ML VIAL SLOW IVP PRN ×6 (00:28→16:47)
[2021-09-23] MEDS: Morphine 4 MG/ML VIAL SLOW IVP PRN ×8 (00:30→21:49)
[2021-09-23] MEDS: Acetaminophen 650 MG Suppository PR PRN (10:12)
[2021-09-23 21:24] VITALS: BP 132/70
[2021-09-24 01:27] VITALS: TEMP 100
== END 2021-09-24 02:40 | disposition expired | DRG 64 ==
LOC: ERS 16:23 → CCU 19:10 → T4-A 09-19 10:57 → IMCU/EMU 09-21 16:50 → MSONC 09-22 20:09
PROVIDERS: ADMIT Neurological Surgery; ATTEND Internal Medicine
PROC: 30283B1 Transfusion of Nonautologous 4-Factor Prothrombin Complex Concentrate into Vein, Percutaneous Approach (ICD-10-PCS; principal; 2021-09-10)
PROC: HZ2ZZZZ Detoxification Services for Substance Abuse Treatment (ICD-10-PCS; 2021-09-10)
PROC: 0DH67UZ Insertion of Feeding Device into Stomach, Via Natural or Artificial Opening (ICD-10-PCS; 2021-09-13)
PROC: 3E0G76Z Introduction of Nutritional Substance into Upper GI, Via Natural or Artificial Opening (ICD-10-PCS; 2021-09-13)
PROC: 06HY33Z Insertion of Infusion Device into Lower Vein, Percutaneous Approach (ICD-10-PCS; 2021-09-22)
DX: I61.4 Nontraumatic intracerebral hemorrhage in cerebellum (principal); G93.41 Metabolic encephalopathy; A41.9 Sepsis, unspecified organism; J69.0 Pneumonitis due to inhalation of food and vomit; R65.21 Severe sepsis with septic shock; N17.9 Acute kidney failure, unspecified; G91.9 Hydrocephalus, unspecified; F10.139 Alcohol abuse with withdrawal, unspecified; E87.0 Hyperosmolality and hypernatremia; C79.51 Secondary malignant neoplasm of bone; C79.72 Secondary malignant neoplasm of left adrenal gland; C79.71 Secondary malignant neoplasm of right adrenal gland; Z51.5 Encounter for palliative care; Z66 Do not resuscitate; Z20.822 Contact with and (suspected) exposure to COVID-19; I48.0 Paroxysmal atrial fibrillation; I25.10 Atherosclerotic heart disease of native coronary artery without angina pectoris; E78.5 Hyperlipidemia, unspecified; I16.0 Hypertensive urgency; I12.9 Hypertensive chronic kidney disease with stage 1 through stage 4 chronic kidney disease, or unspecified chronic kidney disease; E11.51 Type 2 diabetes mellitus with diabetic peripheral angiopathy without gangrene; R53.81 Other malaise; R13.10 Dysphagia, unspecified; E11.22 Type 2 diabetes mellitus with diabetic chronic kidney disease; N18.30 Chronic kidney disease, stage 3 unspecified; C80.1 Malignant (primary) neoplasm, unspecified; R91.1 Solitary pulmonary nodule; J45.909 Unspecified asthma, uncomplicated; K21.9 Gastro-esophageal reflux disease without esophagitis; I60.9 Nontraumatic subarachnoid hemorrhage, unspecified; F17.210 Nicotine dependence, cigarettes, uncomplicated; Z79.82 Long term (current) use of aspirin; Z98.890 Other specified postprocedural states; Z88.1 Allergy status to other antibiotic agents; Z95.828 Presence of other vascular implants and grafts; Z91.018 Allergy to other foods; Z79.899 Other long term (current) drug therapy; Z79.01 Long term (current) use of anticoagulants; Z90.79 Acquired absence of other genital organ(s); Z78.1 Physical restraint status; Z88.8 Allergy status to other drugs, medicaments and biological substances
CPT/HCPCS: 36415; 36416; 70450; 70496; 71045; 71250; 74018; 80048; 80061; 80069; 80076; 80202; 81001; 82248; 82565; 82570; 83735; 83880; 84100; 84145; 84156; 84300; 84540; 85025; 85610; 85730; 86780; 87040; 93005; 93010; 93306; 93880; 94640; 94664; 96374; C9113; J0360; J0692; J1940; J2060; J2185; J2270; J2930; J3370; J3411; J3430; J3475; J3490; J7030; J7050; J7168; J7620; Q9967; U0002; U0003; U0005